=== PATIENT | male | born 1950 | race Caucasian/White ===

== ENCOUNTER 2016-08-18 08:21 | Inpatient (IN) | payer MEDICARE, MEDICAID ==
[~2016-08-18] VITALS: Ht 185.4 cm; Wt 115.3 kg
[2016-08-18] MEDS ORDERED: SODIUM CHLORIDE 0.9% 500 ML IVB ONE (09:01)
[2016-08-18] MEDS ORDERED: LEVOFLOXACIN 500 MG/100 ML PREMIX BAG IV ONE (09:15)
[2016-08-18] MEDS ORDERED: ACETAMINOPHEN 325 MG TAB PO ONE (09:15)
[2016-08-18 10:23] LABS: Basophils # (auto) 0 uL; DEFINITIVE VIEW TRANSMISSION; Eosinophils # (auto) 0 uL; Lymphocytes # (auto) 0.3 uL; Neutrophils # (auto) 19.2 uL; SUSPECT VIEW TRANSMISSION
[2016-08-18 10:28] LABS: Hematocrit 21.4 % (41.0-53.0); Lymphocytes % (auto) 1.7 % (10.0-50.0); Mean Corpuscular Hemoglobin 27.4 pg (28.0-32.0); Mean Corpuscular Volume 85.6 fL (80.0-100.0); Mean Platelet Volume 7.6 fL (7.4-10.4); Monocytes # (auto) 1.3 uL; Monocytes % (auto) 6.3 % (0.0-12.0); Platelet Count (auto) 289 10^3/uL (140-450); Red Cell Distribution Width 17.7 % (11.6-16.0); White Blood Cell 20.9 10^3/uL (4.4-10.8)
[2016-08-18 10:32] LABS: Hemoglobin 6.8 g/dL (13.5-17.5)
[2016-08-18 10:37] LABS: Partial Thromboplastin Time 38.1 sec (22.64-33.71)
[2016-08-18 10:39] LABS: INR 3.8 (0.9-1.15); Prothrombin Time 39.1 sec (9.37-12.3)
[2016-08-18 10:42] LABS: Albumin 3.2 g/dL (3.4-5.0); BUN/Creatinine Ratio 10.8; Bilirubin, Total 1.3 mg/dL (0.2-1.0); Calcium 8.9 mg/dL (8.5-10.1); Magnesium 1.7 mg/dL (1.6-2.6); Potassium 3.3 mmol/L (3.5-5.1); Total Protein 7.6 g/dL (6.4-8.2)
[2016-08-18] MEDS ORDERED: FERROUS SULFATE 325 MG TAB PO ONE (11:30)
[2016-08-18] MEDS ORDERED: EPOETIN ALFA 3,000 UNIT/1 ML VIAL IV ONE (12:15)
[2016-08-18] MEDS ORDERED: VANCOMYCIN PER PHARMACY 0 MG IV SCH (13:45)
[2016-08-18] MEDS ORDERED: MORPHINE SULF INJ 2 MG/ML SYRINGE 1ML IV PRN ×2 (14:15)
[2016-08-18] MEDS ORDERED: ZOLPIDEM TARTRATE 5 MG TAB PO PRN (14:15)
[2016-08-18] MEDS ORDERED: DEXTROSE (50%) 50ML SYRG IV PRN (14:15)
[2016-08-18] MEDS ORDERED: ONDANSETRON HCL 4 MG/2 ML VIAL IV PRN (14:15)
[2016-08-18] MEDS ORDERED: ALUM & MAG HYDROX-SIMETH LIQ(MAALOX) 30 ML PO PRN (14:15)
[2016-08-18] MEDS ORDERED: LORazepam 0.5 MG TAB PO PRN (14:15)
[2016-08-18] MEDS ORDERED: NITROGLYCERIN 0.4 MG SL TAB SL PRN ×2 (14:15)
[2016-08-18] MEDS: VANCOMYCIN 1GM/250ML D5W 250 ML IV SCH (14:24)
[2016-08-18] MEDS ORDERED: ASPirin 81 mg TAB PO ONE (14:30)
[2016-08-18] MEDS: ENALAPRIL MALEATE 2.5 MG TAB PO SCH ×2 (14:54→22:11)
[2016-08-18] MEDS: CARVEDILOL 3.125 MG TAB PO SCH ×2 (14:55→22:11)
[2016-08-18] MEDS ORDERED: PANT40TA2 PO (15:49)
[2016-08-18] MEDS ORDERED: VALS320T15 PO (15:49)
[2016-08-18] MEDS ORDERED: DORZ2SOL EACHEYE (15:49)
[2016-08-18] MEDS ORDERED: TRAV0.00 EACHEYE (15:49)
[2016-08-18] MEDS ORDERED: BRIM0.2S2 EACHEYE (15:49)
[2016-08-18] MEDS ORDERED: TORS5TAB8 PO (15:49)
[2016-08-18] MEDS ORDERED: GABA300C8 PO (15:49)
[2016-08-18] MEDS ORDERED: FERR65TA PO (15:49)
[2016-08-18] MEDS ORDERED: WARF5TAB71 PO (15:49)
[2016-08-18] MEDS ORDERED: ATOR20TA PO (15:49)
[2016-08-18] MEDS ORDERED: INSLISPI SC ×2 (15:49)
[2016-08-18] MEDS: ACCU-CHEK COMFORT CURVE STRIP VI SCH ×2 (17:10→22:19)
[2016-08-18] MEDS: InsuLIN REG 1unit/0.01ml Soln (100units/ml) SC SCH ×2 (17:20→22:25)
[2016-08-18] MEDS: ACETAMINOPHEN 325 MG TAB PO PRN (22:10)
[2016-08-18] MEDS: SODIUM CHLOR 0.9% PF (SALINE LOCK) 10ML VIAL IV SCH (22:11)
[2016-08-18] MEDS: ATORVASTATIN 20 MG TAB PO SCH (22:11)
[2016-08-19 01:51] LABS: Urine Color Yellow (Yellow); Urine Glucose TRACE mg/dL (Normal); Urine Granular Cast MANY /lpf (0); Urine Hyaline Cast MOD /lpf (0 - 2); Urine Ketone TRACE (Negative); Urine Mucus FEW (None Seen); Urine Nitrite Negative (Negative); Urine RBC 9 /hpf (0 - 3); Urine Sperm PRESENT /hpf (None Seen); Urine Squamous Epithelial Cell FEW /hpf (<5)
[2016-08-19] MEDS: VANCOMYCIN 1GM/250ML D5W 250 ML IV SCH ×2 (02:14→13:44)
[2016-08-19 02:16] LABS: Urine Blood 1+ /uL (Negative)
[2016-08-19 02:17] LABS: Urine Bilirubin POSITIVE (Negative)
[2016-08-19] MEDS ORDERED: POTASSIUM CHL 20 Meq TABLET PO ONE (03:00)
[2016-08-19] MEDS: SODIUM CHLOR 0.9% PF (SALINE LOCK) 10ML VIAL IV SCH ×3 (06:01→21:36)
[2016-08-19 06:39] LABS: Basophils # (auto) 0 uL; Basophils % (auto) 0.2 % (0.0-2.0); DEFINITIVE VIEW TRANSMISSION; Eosinophils # (auto) 0 uL; Hematocrit 25.8 % (41.0-53.0); Hemoglobin 8.2 g/dL (13.5-17.5); Lymphocytes # (auto) 0.4 uL; Lymphocytes % (auto) 3.1 % (10.0-50.0); Mean Corpuscular Hemoglobin 27.2 pg (28.0-32.0); Mean Corpuscular Hgb Conc. 31.6 g/dL (32.0-36.0); Mean Corpuscular Volume 86.2 fL (80.0-100.0); Mean Platelet Volume 7.3 fL (7.4-10.4); Monocytes # (auto) 0.5 uL; Monocytes % (auto) 3.9 % (0.0-12.0); Neutrophils # (auto) 12.9 uL; Neutrophils % (auto) 92.8 % (37.0-80.0); Platelet Count (auto) 231 10^3/uL (140-450); White Blood Cell 13.9 10^3/uL (4.4-10.8)
[2016-08-19] MEDS: ACCU-CHEK COMFORT CURVE STRIP VI SCH ×4 (07:01→21:56)
[2016-08-19] MEDS: InsuLIN REG 1unit/0.01ml Soln (100units/ml) SC SCH ×4 (07:02→22:17)
[2016-08-19 07:22] LABS: Temperature: 20.5 C (20.0-25.0)
[2016-08-19 07:24] LABS: Albumin 2.7 g/dL (3.4-5.0); BUN/Creatinine Ratio 13.9; Calcium 8.2 mg/dL (8.5-10.1); Magnesium 1.7 mg/dL (1.6-2.6); Total Protein 6.8 g/dL (6.4-8.2)
[2016-08-19 07:25] LABS: Potassium 3.8 mmol/L (3.5-5.1)
[2016-08-19] MEDS: ACETAMINOPHEN 325 MG TAB PO PRN (07:46)
[2016-08-19] MEDS: CARVEDILOL 3.125 MG TAB PO SCH ×2 (12:20→22:15)
[2016-08-19] MEDS: ASPirin 81 mg TAB PO SCH (12:20)
[2016-08-19] MEDS: DOCUSATE SOD 100 MG CAP PO SCH (12:20)
[2016-08-19] MEDS: LEVOFLOXACIN 250MG 50 ML IV SCH (12:20)
[2016-08-19] MEDS: ENALAPRIL MALEATE 2.5 MG TAB PO SCH ×2 (12:21→22:15)
[2016-08-19] MEDS: Boost Glucose Control 8 Ounces PO SCH ×2 (18:34→22:00)
[2016-08-19] MEDS: GABAPENTIN 300 MG CAP PO SCH (22:15)
[2016-08-19] MEDS: ATORVASTATIN 20 MG TAB PO SCH (22:15)
[2016-08-20] MEDS: VANCOMYCIN 1GM/250ML D5W 250 ML IV SCH ×2 (02:58→14:22)
[2016-08-20 03:30] VITALS: BP 142/77
[2016-08-20 04:08] VITALS: BP 138/94
[2016-08-20 05:36] LABS: Basophils # (auto) 0 uL; Basophils % (auto) 0.4 % (0.0-2.0); DEFINITIVE VIEW TRANSMISSION; Eosinophils # (auto) 0.2 uL; Eosinophils % (auto) 1.7 % (0.0-7.0); Hematocrit 24.8 % (41.0-53.0); Hemoglobin 7.9 g/dL (13.5-17.5); Lymphocytes # (auto) 0.8 uL; Lymphocytes % (auto) 8.5 % (10.0-50.0); Mean Corpuscular Hemoglobin 27.2 pg (28.0-32.0); Mean Corpuscular Hgb Conc. 31.7 g/dL (32.0-36.0); Mean Corpuscular Volume 85.8 fL (80.0-100.0); Mean Platelet Volume 7.9 fL (7.4-10.4); Monocytes # (auto) 0.6 uL; Monocytes % (auto) 6.5 % (0.0-12.0); Neutrophils # (auto) 7.6 uL; Neutrophils % (auto) 82.9 % (37.0-80.0); Platelet Count (auto) 206 10^3/uL (140-450); Red Cell Distribution Width 17.9 % (11.6-16.0); White Blood Cell 9.1 10^3/uL (4.4-10.8)
[2016-08-20] MEDS: Boost Glucose Control 8 Ounces PO SCH ×4 (06:00→22:00)
[2016-08-20 06:09] LABS: Albumin 2.6 g/dL (3.4-5.0); Potassium 3.6 mmol/L (3.5-5.1)
[2016-08-20 06:12] LABS: BUN/Creatinine Ratio 15.5
[2016-08-20 06:15] LABS: Total Protein 6.7 g/dL (6.4-8.2)
[2016-08-20] MEDS: InsuLIN REG 1unit/0.01ml Soln (100units/ml) SC SCH ×4 (07:01→23:10)
[2016-08-20] MEDS: ACCU-CHEK COMFORT CURVE STRIP VI SCH ×4 (07:01→22:00)
[2016-08-20] MEDS: SODIUM CHLOR 0.9% PF (SALINE LOCK) 10ML VIAL IV SCH ×3 (07:02→23:17)
[2016-08-20 08:00] VITALS: BP 127/63
[2016-08-20] MEDS: GABAPENTIN 300 MG CAP PO SCH ×3 (08:21→23:18)
[2016-08-20] MEDS: ACETAMINOPHEN 325 MG TAB PO PRN ×3 (08:22→23:19)
[2016-08-20] MEDS: ENALAPRIL MALEATE 2.5 MG TAB PO SCH ×2 (10:00→23:18)
[2016-08-20] MEDS: LEVOFLOXACIN 250MG 50 ML IV SCH (10:22)
[2016-08-20] MEDS: ASPirin 81 mg TAB PO SCH (10:25)
[2016-08-20] MEDS: DOCUSATE SOD 100 MG CAP PO SCH (10:25)
[2016-08-20] MEDS: CARVEDILOL 3.125 MG TAB PO SCH ×2 (10:27→23:17)
[2016-08-20 12:00] VITALS: BP 130/69
[2016-08-20 16:00] VITALS: BP 118/58
[2016-08-20 20:12] VITALS: BP 127/74
[2016-08-20] MEDS: ATORVASTATIN 20 MG TAB PO SCH (23:18)
[2016-08-21 00:26] VITALS: BP 121/75
[2016-08-21] MEDS: VANCOMYCIN 1GM/250ML D5W 250 ML IV SCH ×2 (02:09→13:38)
[2016-08-21 04:22] VITALS: BP 131/71
[2016-08-21 05:40] LABS: Albumin 2.6 g/dL (3.4-5.0); Calcium 8.5 mg/dL (8.5-10.1); Potassium 3.7 mmol/L (3.5-5.1)
[2016-08-21 05:45] LABS: Total Protein 6.3 g/dL (6.4-8.2)
[2016-08-21 05:46] LABS: Basophils # (auto) 0.1 uL; Basophils % (auto) 0.9 % (0.0-2.0); DEFINITIVE VIEW TRANSMISSION; Eosinophils # (auto) 0.2 uL; Eosinophils % (auto) 2.3 % (0.0-7.0); Hematocrit 25.4 % (41.0-53.0); Hemoglobin 7.9 g/dL (13.5-17.5); Lymphocytes # (auto) 0.9 uL; Mean Corpuscular Hemoglobin 27.1 pg (28.0-32.0); Mean Corpuscular Hgb Conc. 31.2 g/dL (32.0-36.0); Mean Corpuscular Volume 87.1 fL (80.0-100.0); Monocytes # (auto) 0.5 uL; Neutrophils % (auto) 75.8 % (37.0-80.0); Platelet Count (auto) 184 10^3/uL (140-450); Red Cell Distribution Width 17.3 % (11.6-16.0); SUSPECT VIEW TRANSMISSION; White Blood Cell 6.7 10^3/uL (4.4-10.8)
[2016-08-21] MEDS: Boost Glucose Control 8 Ounces PO SCH ×4 (06:00→22:00)
[2016-08-21 06:22] LABS: INR 1.8 (0.9-1.15); Prothrombin Time 18.5 sec (9.37-12.3)
[2016-08-21] MEDS: InsuLIN REG 1unit/0.01ml Soln (100units/ml) SC SCH ×4 (06:53→23:22)
[2016-08-21] MEDS: SODIUM CHLOR 0.9% PF (SALINE LOCK) 10ML VIAL IV SCH ×3 (06:53→23:28)
[2016-08-21] MEDS: ACCU-CHEK COMFORT CURVE STRIP VI SCH ×4 (06:53→22:00)
[2016-08-21 08:00] VITALS: BP 134/74
[2016-08-21] MEDS: DOCUSATE SOD 100 MG CAP PO SCH (10:00)
[2016-08-21] MEDS: GABAPENTIN 300 MG CAP PO SCH ×3 (10:44→23:29)
[2016-08-21] MEDS: LEVOFLOXACIN 250MG 50 ML IV SCH (10:44)
[2016-08-21] MEDS: ENALAPRIL MALEATE 2.5 MG TAB PO SCH ×2 (10:45→23:29)
[2016-08-21] MEDS: CARVEDILOL 3.125 MG TAB PO SCH ×2 (10:45→23:30)
[2016-08-21] MEDS: ACETAMINOPHEN 325 MG TAB PO PRN ×2 (10:47→18:59)
[2016-08-21 12:00] VITALS: BP 110/59
[2016-08-21 16:00] VITALS: BP 119/72
[2016-08-21 20:00] VITALS: BP 122/78
[2016-08-21] MEDS: ATORVASTATIN 20 MG TAB PO SCH (23:29)
[2016-08-22] VITALS: BP 110/58
[2016-08-22] MEDS: VANCOMYCIN 1GM/250ML D5W 250 ML IV SCH ×2 (02:35→14:16)
[2016-08-22] MEDS: ACETAMINOPHEN 325 MG TAB PO PRN ×2 (02:48→22:22)
[2016-08-22 04:00] VITALS: BP 146/96
[2016-08-22] MEDS: Boost Glucose Control 8 Ounces PO SCH ×3 (06:00→18:00)
[2016-08-22 06:40] LABS: Basophils # (auto) 0.1 uL; Basophils % (auto) 0.8 % (0.0-2.0); DEFINITIVE VIEW TRANSMISSION; Eosinophils # (auto) 0.2 uL; Eosinophils % (auto) 2.7 % (0.0-7.0); Hematocrit 24.6 % (41.0-53.0); Hemoglobin 7.9 g/dL (13.5-17.5); Mean Corpuscular Hemoglobin 27.3 pg (28.0-32.0); Mean Corpuscular Hgb Conc. 32.1 g/dL (32.0-36.0); Mean Corpuscular Volume 84.9 fL (80.0-100.0); Mean Platelet Volume 8.3 fL (7.4-10.4); Monocytes # (auto) 0.6 uL; Monocytes % (auto) 9.5 % (0.0-12.0); Neutrophils # (auto) 4.6 uL; Platelet Count (auto) 190 10^3/uL (140-450); Red Cell Distribution Width 18.1 % (11.6-16.0); White Blood Cell 6.4 10^3/uL (4.4-10.8)
[2016-08-22] MEDS: ACCU-CHEK COMFORT CURVE STRIP VI SCH ×4 (06:53→22:16)
[2016-08-22] MEDS: SODIUM CHLOR 0.9% PF (SALINE LOCK) 10ML VIAL IV SCH ×3 (06:53→21:19)
[2016-08-22 06:56] LABS: Calcium 8.7 mg/dL (8.5-10.1); Potassium 3.9 mmol/L (3.5-5.1)
[2016-08-22] MEDS: InsuLIN REG 1unit/0.01ml Soln (100units/ml) SC SCH ×4 (06:57→22:00)
[2016-08-22 06:59] LABS: Albumin 2.6 g/dL (3.4-5.0); BUN/Creatinine Ratio 18.8
[2016-08-22 07:01] LABS: Bilirubin, Total 0.8 mg/dL (0.2-1.0)
[2016-08-22 07:02] LABS: Total Protein 6.5 g/dL (6.4-8.2)
[2016-08-22 07:54] VITALS: BP 126/63
[2016-08-22] MEDS: GABAPENTIN 300 MG CAP PO SCH ×3 (08:00→21:15)
[2016-08-22] MEDS: DOCUSATE SOD 100 MG CAP PO SCH (10:00)
[2016-08-22] MEDS: LEVOFLOXACIN 250MG 50 ML IV SCH (10:05)
[2016-08-22] MEDS: CARVEDILOL 3.125 MG TAB PO SCH ×2 (10:06→21:18)
[2016-08-22] MEDS: ENALAPRIL MALEATE 2.5 MG TAB PO SCH ×2 (10:06→21:17)
[2016-08-22 12:00] VITALS: BP 113/58
[2016-08-22 15:55] VITALS: BP 109/61
[2016-08-22 21:12] VITALS: BP 141/85
[2016-08-22] MEDS: ATORVASTATIN 20 MG TAB PO SCH (21:16)
[2016-08-23] MEDS: VANCOMYCIN 1GM/250ML D5W 250 ML IV SCH ×2 (02:01→14:25)
[2016-08-23 04:52] VITALS: BP 110/65
[2016-08-23 05:42] LABS: Basophils # (auto) 0 uL; Basophils % (auto) 0.4 % (0.0-2.0); DEFINITIVE VIEW TRANSMISSION; Eosinophils # (auto) 0.1 uL; Eosinophils % (auto) 2.1 % (0.0-7.0); Hematocrit 25.3 % (41.0-53.0); Hemoglobin 7.9 g/dL (13.5-17.5); Lymphocytes % (auto) 14.5 % (10.0-50.0); Mean Corpuscular Hemoglobin 26.7 pg (28.0-32.0); Mean Corpuscular Hgb Conc. 31.1 g/dL (32.0-36.0); Mean Corpuscular Volume 85.8 fL (80.0-100.0); Monocytes # (auto) 0.8 uL; Monocytes % (auto) 11.6 % (0.0-12.0); Neutrophils # (auto) 4.7 uL; Neutrophils % (auto) 71.4 % (37.0-80.0); Platelet Count (auto) 189 10^3/uL (140-450); Red Cell Distribution Width 17.1 % (11.6-16.0); White Blood Cell 6.6 10^3/uL (4.4-10.8)
[2016-08-23] MEDS: SODIUM CHLOR 0.9% PF (SALINE LOCK) 10ML VIAL IV SCH ×3 (06:00→22:00)
[2016-08-23 06:21] LABS: Albumin 2.7 g/dL (3.4-5.0); BUN/Creatinine Ratio 19.6; Bilirubin, Total 0.9 mg/dL (0.2-1.0); Calcium 9.3 mg/dL (8.5-10.1); Potassium 4.1 mmol/L (3.5-5.1); Total Protein 6.7 g/dL (6.4-8.2)
[2016-08-23] MEDS: GABAPENTIN 300 MG CAP PO SCH ×3 (06:48→21:53)
[2016-08-23] MEDS: ACCU-CHEK COMFORT CURVE STRIP VI SCH ×4 (06:51→22:03)
[2016-08-23] MEDS: InsuLIN REG 1unit/0.01ml Soln (100units/ml) SC SCH ×4 (06:51→22:00)
[2016-08-23 09:47] VITALS: BP 165/95
[2016-08-23] MEDS: DOCUSATE SOD 100 MG CAP PO SCH (11:09)
[2016-08-23] MEDS: CARVEDILOL 3.125 MG TAB PO SCH ×2 (11:10→21:55)
[2016-08-23] MEDS: ENALAPRIL MALEATE 2.5 MG TAB PO SCH ×2 (11:11→21:54)
[2016-08-23] MEDS: Boost Glucose Control 8 Ounces PO SCH ×2 (12:00→18:00)
[2016-08-23 14:10] VITALS: BP 109/55
[2016-08-23 16:34] VITALS: BP 138/87
[2016-08-23] MEDS: ATORVASTATIN 20 MG TAB PO SCH (21:53)
[2016-08-23 22:10] VITALS: BP 144/82
[2016-08-23] MEDS: ACETAMINOPHEN 325 MG TAB PO PRN (23:01)
[2016-08-24] MEDS: VANCOMYCIN 1GM/250ML D5W 250 ML IV SCH ×2 (02:09→14:31)
[2016-08-24 04:58] VITALS: BP 115/71
[2016-08-24] MEDS: GABAPENTIN 300 MG CAP PO SCH ×3 (06:04→21:45)
[2016-08-24] MEDS: SODIUM CHLOR 0.9% PF (SALINE LOCK) 10ML VIAL IV SCH ×3 (06:07→21:49)
[2016-08-24] MEDS: ACCU-CHEK COMFORT CURVE STRIP VI SCH ×4 (06:46→22:01)
[2016-08-24] MEDS: InsuLIN REG 1unit/0.01ml Soln (100units/ml) SC SCH ×4 (06:47→22:03)
[2016-08-24 08:35] VITALS: BP 133/88
[2016-08-24] MEDS: DOCUSATE SOD 100 MG CAP PO SCH (10:41)
[2016-08-24] MEDS: CARVEDILOL 3.125 MG TAB PO SCH ×2 (10:42→21:47)
[2016-08-24] MEDS: ENALAPRIL MALEATE 2.5 MG TAB PO SCH ×2 (10:43→21:46)
[2016-08-24] MEDS: Boost Glucose Control 8 Ounces PO SCH ×3 (12:00→22:00)
[2016-08-24 12:39] VITALS: BP 151/96
[2016-08-24 17:24] VITALS: BP 156/84
[2016-08-24] MEDS: ATORVASTATIN 20 MG TAB PO SCH (21:45)
[2016-08-24] MEDS: ACETAMINOPHEN 325 MG TAB PO PRN (21:47)
[2016-08-24 21:50] VITALS: BP 136/80
[2016-08-25] MEDS: VANCOMYCIN 1GM/250ML D5W 250 ML IV SCH (02:00)
[2016-08-25 04:37] VITALS: BP 122/68
[2016-08-25] MEDS: SODIUM CHLOR 0.9% PF (SALINE LOCK) 10ML VIAL IV SCH ×3 (06:18→22:03)
[2016-08-25] MEDS: Boost Glucose Control 8 Ounces PO SCH ×4 (06:19→22:04)
[2016-08-25] MEDS: ACCU-CHEK COMFORT CURVE STRIP VI SCH ×4 (06:19→22:03)
[2016-08-25] MEDS: InsuLIN REG 1unit/0.01ml Soln (100units/ml) SC SCH ×4 (06:19→22:00)
[2016-08-25 06:36] LABS: BUN/Creatinine Ratio 19.9; Potassium 4.1 mmol/L (3.5-5.1)
[2016-08-25 09:00] VITALS: BP 146/91
[2016-08-25] MEDS: ENALAPRIL MALEATE 2.5 MG TAB PO SCH ×2 (09:52→22:01)
[2016-08-25] MEDS: GABAPENTIN 300 MG CAP PO SCH ×3 (09:52→21:59)
[2016-08-25] MEDS: CARVEDILOL 3.125 MG TAB PO SCH ×2 (09:53→22:00)
[2016-08-25] MEDS: DOCUSATE SOD 100 MG CAP PO SCH (09:54)
[2016-08-25 13:00] VITALS: BP 135/79
[2016-08-25 16:54] VITALS: BP 157/62
[2016-08-25] MEDS: ATORVASTATIN 20 MG TAB PO SCH (21:59)
[2016-08-25 22:00] VITALS: BP 157/81
[2016-08-26 05:00] VITALS: BP 142/83
[2016-08-26] MEDS: SODIUM CHLOR 0.9% PF (SALINE LOCK) 10ML VIAL IV SCH (06:10)
[2016-08-26] MEDS: Boost Glucose Control 8 Ounces PO SCH (06:11)
[2016-08-26] MEDS: ACCU-CHEK COMFORT CURVE STRIP VI SCH (06:18)
[2016-08-26] MEDS: InsuLIN REG 1unit/0.01ml Soln (100units/ml) SC SCH (06:19)
[2016-08-26 06:21] LABS: Basophils # (auto) 0.1 uL; Basophils % (auto) 1.1 % (0.0-2.0); DEFINITIVE VIEW TRANSMISSION; Eosinophils # (auto) 0.2 uL; Eosinophils % (auto) 2.7 % (0.0-7.0); Hematocrit 26.1 % (41.0-53.0); Hemoglobin 8.3 g/dL (13.5-17.5); Lymphocytes # (auto) 0.8 uL; Lymphocytes % (auto) 13.5 % (10.0-50.0); Mean Corpuscular Hemoglobin 27.3 pg (28.0-32.0); Mean Corpuscular Hgb Conc. 31.8 g/dL (32.0-36.0); Mean Corpuscular Volume 86.1 fL (80.0-100.0); Monocytes # (auto) 0.6 uL; Monocytes % (auto) 10.5 % (0.0-12.0); Neutrophils # (auto) 4.4 uL; Neutrophils % (auto) 72.2 % (37.0-80.0); Platelet Count (auto) 221 10^3/uL (140-450); Red Cell Distribution Width 18.5 % (11.6-16.0); White Blood Cell 6.2 10^3/uL (4.4-10.8)
[2016-08-26 06:48] LABS: BUN/Creatinine Ratio 19.4
[2016-08-26 09:00] VITALS: BP 144/79
[2016-08-26] MEDS: GABAPENTIN 300 MG CAP PO SCH (09:45)
[2016-08-26] MEDS: DOCUSATE SOD 100 MG CAP PO SCH (09:45)
[2016-08-26] MEDS: CARVEDILOL 3.125 MG TAB PO SCH (09:46)
[2016-08-26] MEDS: ENALAPRIL MALEATE 2.5 MG TAB PO SCH (09:46)
[2016-08-26 11:56] VITALS: BP 144/79
[2016-08-26 14:16] VITALS: BP 152/74
== END 2016-08-26 13:00 | disposition home or self-care (01) | DRG 871 ==
LOC: EDBD 08:21 → ER 08:22 → TELE 08:23 → DOU IN ICU 08-20 01:09 → TELE-EAST 08-22 19:28
PROVIDERS: ADMIT Internal Medicine; ATTEND Internal Medicine Pulmonary Disease
DX: A41.9 Sepsis, unspecified organism (principal); I21.4 Non-ST elevation (NSTEMI) myocardial infarction; E43 Unspecified severe protein-calorie malnutrition; I50.33 Acute on chronic diastolic (congestive) heart failure; D68.69 Other thrombophilia; I13.0 Hypertensive heart and chronic kidney disease with heart failure and stage 1 through stage 4 chronic kidney disease, or unspecified chronic kidney disease; I48.92 Unspecified atrial flutter; L03.116 Cellulitis of left lower limb; I69.354 Hemiplegia and hemiparesis following cerebral infarction affecting left non-dominant side; D64.9 Anemia, unspecified; B95.62 Methicillin resistant Staphylococcus aureus infection as the cause of diseases classified elsewhere; D63.8 Anemia in other chronic diseases classified elsewhere; E10.22 Type 1 diabetes mellitus with diabetic chronic kidney disease; T45.515A Adverse effect of anticoagulants, initial encounter; L98.499 Non-pressure chronic ulcer of skin of other sites with unspecified severity; E10.622 Type 1 diabetes mellitus with other skin ulcer; T25.022A Burn of unspecified degree of left foot, initial encounter; E78.5 Hyperlipidemia, unspecified; E87.6 Hypokalemia; I50.9 Heart failure, unspecified; I48.2 Chronic atrial fibrillation; N18.3 Chronic kidney disease, stage 3 (moderate); Z79.01 Long term (current) use of anticoagulants; Z68.33 Body mass index [BMI] 33.0-33.9, adult; I25.2 Old myocardial infarction; Z88.0 Allergy status to penicillin
CPT/HCPCS: 36415; 71010; 80048; 80053; 80061; 80202; 81001; 82962; 83036; 83605; 83735; 83880; 84484; 85025; 85610; 85730; 87040; 87077; 87081; 87086; 87186; 87205; 93005; 93306; 96361; 96374; 96375; 99291; J1815; J1956; J2405